=== PATIENT | male | born 1940 | race Caucasian/White ===

== ENCOUNTER 2018-10-16 14:38 | Inpatient (IN) ==
[2018-10-16] MEDS ORDERED: Naloxone 0.4 MG/ML INJ IVP PRN (17:31)
[2018-10-16] MEDS ORDERED: Ringers Solution, Lactated 1,000 ML IVC SCH (17:45)
[2018-10-16 18:04] LABS: Basophils % 0.3 %; Eosinophils # 0.1 K/mcL (0.0-0.6); Eosinophils % 0.7 %; Hematocrit 32.9 % (37.5-50.1); Immature Granulocytes % 0.3 % (0-4); Lymphocytes # 0.8 K/mcL (0.6-4.6); Lymphocytes % 6.9 %; Mean Corpuscular HGB Conc 33.4 g/dL (31.6-35.5); Mean Corpuscular Hemoglobin 31.6 pg (28.0-33.3); Mean Corpuscular Volume 94.5 fL (83.0-100.0); Mean Platelet Volume 10.3 fL (9.4-12.4); Monocytes # 0.4 K/mcL (0.0-1.3); Monocytes % 3.7 %; Neutrophils # 10.1 K/mcL (1.6-8.9); Platelet Count 256 K/mcL (140-400); Red Blood Count 3.48 M/mcL (4.19-5.50); Red Cell Distribution Width 14.6 % (11.5-14.5); Segmented Neutrophils % 88.1 %; White Blood Count 11.5 K/mcL (4.3-11.1)
[2018-10-16 18:29] LABS: Sodium, Urine 55.2 mEq/L
[2018-10-16 18:30] LABS: Alanine Aminotransferase 29 Units/L (7-52); Albumin 3.6 g/dL (3.5-5.7); Albumin/Globulin Ratio 1.4 (1.1-2.2); Alkaline Phosphatase 50 Units/L (34-104); Aspartate Amino Transferase 18 Units/L (13-39); Bilirubin,Total 0.4 mg/dL (0.3-1.0); Blood Urea Nitrogen > 130 mg/dL (8-23); Calcium 8.6 mg/dL (8.6-10.3); Carbon Dioxide 14 mEq/L (23-29); Chloride 117 mEq/L (98-107); Globulin 2.5 g/dL (2.4-3.5); Glucose 132 mg/dL (70-105); Magnesium 2.9 mg/dL (1.6-2.6); Phosphorous 6.6 mg/dL (2.7-4.5); Potassium 5.1 mEq/L (3.5-5.1); Sodium 148 mEq/L (136-145); Total Protein 6.1 g/dL (6.4-8.9); Troponin I 0.04 ng/mL (< 0.04); eGFR For African Americans 19 (> 60); eGFR For Non-African Americans 16 (> 60)
[2018-10-16 19:04] LABS: ABG Base Excess -10 mEq/L (-2 to 3); ABG HCO3 16 mEq/L (21-27); ABG Oxygen Saturation 90 % (95-98); ABG PCO2 32 mmHg (35-45); ABG PH 7.29 pH Units (7.32-7.45); ABG PO2 63 mmHg (85-104); ABG TCO2 16 mEq/L (20-26)
[2018-10-16] MEDS: Ringers Solution, Lactated 1,000 ML IVC SCH (21:43)
[2018-10-17] MEDS: *HR* Heparin 5,000 UNIT/ML VIAL SQ SCH ×4 (00:19→23:04)
[2018-10-17 03:54] LABS: Basophils # 0.1 K/mcL (0.0-0.2); Basophils % 0.4 %; Eosinophils # 0.7 K/mcL (0.0-0.6); Hematocrit 32.9 % (37.5-50.1); Hemoglobin 10.8 g/dL (12.9-16.9); Immature Granulocytes % 0.4 % (0-4); Lymphocytes # 1.4 K/mcL (0.6-4.6); Lymphocytes % 12.8 %; Mean Corpuscular HGB Conc 32.8 g/dL (31.6-35.5); Mean Corpuscular Hemoglobin 31.5 pg (28.0-33.3); Mean Corpuscular Volume 95.9 fL (83.0-100.0); Mean Platelet Volume 10.8 fL (9.4-12.4); Monocytes # 0.6 K/mcL (0.0-1.3); Monocytes % 5.6 %; Neutrophils # 8.4 K/mcL (1.6-8.9); Platelet Count 277 K/mcL (140-400); Red Blood Count 3.43 M/mcL (4.19-5.50); Red Cell Distribution Width 14.6 % (11.5-14.5); Segmented Neutrophils % 74.8 %; White Blood Count 11.2 K/mcL (4.3-11.1)
[2018-10-17] MEDS: Ringers Solution, Lactated 1,000 ML IVC SCH (04:06)
[2018-10-17 04:09] LABS: Blood Urea Nitrogen > 130 mg/dL (8-23); Carbon Dioxide 15 mEq/L (23-29); Chloride 118 mEq/L (98-107); Glucose 110 mg/dL (70-105); Magnesium 2.8 mg/dL (1.6-2.6); Phosphorous 6.1 mg/dL (2.7-4.5); Potassium 4.9 mEq/L (3.5-5.1); Sodium 150 mEq/L (136-145); eGFR For African Americans 25 (> 60); eGFR For Non-African Americans 20 (> 60)
[2018-10-17 04:10] LABS: Troponin I 0.03 ng/mL (< 0.04)
[2018-10-17 04:37] LABS: Thyroid Stimulating Hormone 1.669 mcIU/mL (0.340-5.600)
[2018-10-17 08:47] LABS: Estimated Average Glucose 131 mg/dl
[2018-10-17] MEDS: D5% in Water 1,000 ML IVC SCH ×2 (10:20→21:20)
[2018-10-17 12:04] LABS: Blood Urea Nitrogen > 130 mg/dL (8-23); Calcium 9.5 mg/dL (8.6-10.3); Carbon Dioxide 18 mEq/L (23-29); Chloride 122 mEq/L (98-107); Glucose 155 mg/dL (70-105); Potassium 4.5 mEq/L (3.5-5.1); Sodium 151 mEq/L (136-145); eGFR For African Americans 33 (> 60); eGFR For Non-African Americans 27 (> 60)
[2018-10-17] MEDS: Fluticasone Propionate Nasal 50 MCG/SPRAY BOTTLE NS SCH (14:19)
[2018-10-17] MEDS ORDERED: Acetaminophen IV 500 MG/50 ML INFUS..BTL IVPB ONE (22:27)
[2018-10-18 02:55] LABS: Basophils # 0.1 K/mcL (0.0-0.2); Basophils % 0.5 %; Eosinophils # 0.6 K/mcL (0.0-0.6); Eosinophils % 4.7 %; Hematocrit 34.1 % (37.5-50.1); Hemoglobin 11.4 g/dL (12.9-16.9); Immature Granulocytes % 0.4 % (0-4); Lymphocytes # 1.4 K/mcL (0.6-4.6); Lymphocytes % 10.7 %; Mean Corpuscular HGB Conc 33.4 g/dL (31.6-35.5); Mean Corpuscular Hemoglobin 31.1 pg (28.0-33.3); Mean Corpuscular Volume 93.2 fL (83.0-100.0); Mean Platelet Volume 11.5 fL (9.4-12.4); Monocytes # 0.8 K/mcL (0.0-1.3); Monocytes % 5.7 %; Neutrophils # 10.3 K/mcL (1.6-8.9); Platelet Count 264 K/mcL (140-400); Red Blood Count 3.66 M/mcL (4.19-5.50); Red Cell Distribution Width 14.9 % (11.5-14.5); White Blood Count 13.1 K/mcL (4.3-11.1)
[2018-10-18 03:03] LABS: Blood Urea Nitrogen > 130 mg/dL (8-23); Calcium 9.7 mg/dL (8.6-10.3); Carbon Dioxide 21 mEq/L (23-29); Chloride 118 mEq/L (98-107); Glucose 146 mg/dL (70-105); Potassium 3.9 mEq/L (3.5-5.1); Sodium 154 mEq/L (136-145); eGFR For African Americans 45 (> 60); eGFR For Non-African Americans 37 (> 60)
[2018-10-18] MEDS: D5% in Water 1,000 ML IVC SCH ×3 (06:27→18:37)
[2018-10-18] MEDS: *HR* Heparin 5,000 UNIT/ML VIAL SQ SCH ×2 (09:12→15:13)
[2018-10-18] MEDS: Fluticasone Propionate Nasal 50 MCG/SPRAY BOTTLE NS SCH (09:12)
[2018-10-18 09:58] LABS: Amphetamine Screen,Urine Negative ng/mL (Cutoff=1000); Barbiturate Screen,Urine Negative ng/mL (Cutoff=200); Benzodiazepines Screen,Urine Negative ng/mL (Cutoff=200); Cannabinoid Screen,Urine Negative ng/mL (Cutoff = 50); Cocaine Screen,Urine Negative ng/mL (Cutoff= 300); Opiate Screen,Urine Negative ng/mL (Cutoff=300); Phencyclidine Screen,Urine Negative ng/mL (Cutoff=25)
[2018-10-18 10:27] LABS: Chol/HDL Ratio 3.2 (0-4.9); Cholesterol 102 mg/dL (< 200); Ethanol < 10 mg/dL (Less than 10); HDL Cholesterol 32 mg/dL (40-59); LDL Cholesterol,Calculated 53 mg/dL (0-99); Triglycerides 85 mg/dL (< 150)
[2018-10-18 10:31] LABS: Blood Urea Nitrogen > 130 mg/dL (8-23); Calcium 9.7 mg/dL (8.6-10.3); Carbon Dioxide 21 mEq/L (23-29); Chloride 117 mEq/L (98-107); Glucose 168 mg/dL (70-105); Magnesium 2.2 mg/dL (1.6-2.6); Phosphorous 2.6 mg/dL (2.7-4.5); Potassium 3.7 mEq/L (3.5-5.1); Sodium 151 mEq/L (136-145); eGFR For African Americans 52 (> 60); eGFR For Non-African Americans 43 (> 60)
[2018-10-18 16:01] LABS: Bilirubin,Urine Negative (Negative); Blood,Urine Moderate (Negative); Clarity,Urine Clear (Clear); Color,Urine Yellow (Yellow); Glucose,Urine (UA) Normal (Normal); Ketones,Urine Negative (Negative); Leukocyte Esterase,Urine Moderate (Negative); Nitrite,Urine Negative (Negative); PH,Urine 5.5 pH Units (5.0-8.0); Protein,Urine Trace mg/dL (Neg-Trace); Specific Gravity,Urine 1.014 (1.010-1.025); Urobilinogen,Urine Normal (Normal)
[2018-10-18 16:03] LABS: Bacteria,Urine None Seen per hpf (None-Few); Hyaline Casts,Urine None Seen per lpf (None-Few); Squamous Epithelial Cell,Urine Moderate per lpf (None-Few)
[2018-10-18 16:08] LABS: Blood Urea Nitrogen > 130 mg/dL (8-23); Calcium 9.2 mg/dL (8.6-10.3); Carbon Dioxide 21 mEq/L (23-29); Chloride 119 mEq/L (98-107); Glucose 183 mg/dL (70-105); Potassium 3.8 mEq/L (3.5-5.1); Sodium 148 mEq/L (136-145); eGFR For African Americans 58 (> 60); eGFR For Non-African Americans 48 (> 60)
[2018-10-18 18:42] LABS: Blood Urea Nitrogen > 130 mg/dL (8-23); Calcium 9.5 mg/dL (8.6-10.3); Carbon Dioxide 19 mEq/L (23-29); Chloride 114 mEq/L (98-107); Glucose 191 mg/dL (70-105); Potassium 3.8 mEq/L (3.5-5.1); Sodium 148 mEq/L (136-145); eGFR For African Americans 55 (> 60); eGFR For Non-African Americans 45 (> 60)
[2018-10-18 23:49] LABS: Blood Urea Nitrogen > 130 mg/dL (8-23); Calcium 9.4 mg/dL (8.6-10.3); Carbon Dioxide 20 mEq/L (23-29); Chloride 113 mEq/L (98-107); Glucose 158 mg/dL (70-105); Potassium 3.8 mEq/L (3.5-5.1); Sodium 146 mEq/L (136-145); eGFR For African Americans 58 (> 60); eGFR For Non-African Americans 48 (> 60)
[2018-10-19] MEDS: *HR* Heparin 5,000 UNIT/ML VIAL SQ SCH ×3 (00:52→16:29)
[2018-10-19] MEDS: D5% in Water 1,000 ML IVC SCH ×2 (04:50→11:06)
[2018-10-19 05:55] LABS: Basophils % 0.3 %; Eosinophils % 9.3 %; Hematocrit 31.3 % (37.5-50.1); Hemoglobin 10.5 g/dL (12.9-16.9); Immature Granulocytes % 0.4 % (0-4); Lymphocytes # 2.3 K/mcL (0.6-4.6); Lymphocytes % 20.6 %; Mean Corpuscular HGB Conc 33.5 g/dL (31.6-35.5); Mean Corpuscular Hemoglobin 31.7 pg (28.0-33.3); Mean Corpuscular Volume 94.6 fL (83.0-100.0); Mean Platelet Volume 11.7 fL (9.4-12.4); Monocytes # 0.6 K/mcL (0.0-1.3); Monocytes % 5.6 %; Platelet Count 227 K/mcL (140-400); Red Blood Count 3.31 M/mcL (4.19-5.50); Red Cell Distribution Width 14.9 % (11.5-14.5); Segmented Neutrophils % 63.8 %
[2018-10-19 06:23] LABS: Blood Urea Nitrogen > 130 mg/dL (8-23); Calcium 9.1 mg/dL (8.6-10.3); Carbon Dioxide 24 mEq/L (23-29); Chloride 111 mEq/L (98-107); Glucose 123 mg/dL (70-105); Potassium 3.5 mEq/L (3.5-5.1); Sodium 145 mEq/L (136-145); eGFR For African Americans 60 (> 60); eGFR For Non-African Americans 49 (> 60)
[2018-10-19] MEDS ORDERED: Rasburicase 14 MG in 0.9 % Sodium Chloride 50 ML IV ONE (08:07)
[2018-10-19] MEDS: Fluticasone Propionate Nasal 50 MCG/SPRAY BOTTLE NS SCH (08:54)
[2018-10-19 11:09] LABS: Lactate Dehydrogenase 118 Units/L (140-271); Uric Acid 8.9 mg/dL (2.3-7.6)
[2018-10-19 14:32] LABS: Blood Urea Nitrogen > 130 mg/dL (8-23); Calcium 8.8 mg/dL (8.6-10.3); Carbon Dioxide 24 mEq/L (23-29); Chloride 110 mEq/L (98-107); Glucose 132 mg/dL (70-105); Potassium 3.6 mEq/L (3.5-5.1); Sodium 142 mEq/L (136-145); eGFR For African Americans > 60 (> 60); eGFR For Non-African Americans 54 (> 60)
[2018-10-19] MEDS ORDERED: Isovue-370 500 ML BOTTLE IVP ONE (17:25)
[2018-10-19 17:55] LABS: % Iron Saturation 42 % (20-55); Iron 66 mcg/dL (65-175); Lactate Dehydrogenase 134 Units/L (140-271); Transferrin 112 mg/dL (203-362)
[2018-10-19 18:11] LABS: Ferritin 321 ng/mL (20-250)
[2018-10-19 18:29] LABS: Folate > 22.3 ng/mL (3.0-16.0); Vitamin B12 1094 pg/mL (250-1100)
[2018-10-19] MEDS: Ringers Solution, Lactated 1,000 ML IVC SCH (18:41)
[2018-10-20] MEDS: *HR* Heparin 5,000 UNIT/ML VIAL SQ SCH ×4 (00:23→23:15)
[2018-10-20 06:07] LABS: Hematocrit 28.5 % (37.5-50.1); Hemoglobin 9.7 g/dL (12.9-16.9); Mean Corpuscular Hemoglobin 31.5 pg (28.0-33.3); Mean Corpuscular Volume 92.5 fL (83.0-100.0); Mean Platelet Volume 11.5 fL (9.4-12.4); Platelet Count 206 K/mcL (140-400); Red Blood Count 3.08 M/mcL (4.19-5.50); Red Cell Distribution Width 14.7 % (11.5-14.5); White Blood Count 10.2 K/mcL (4.3-11.1)
[2018-10-20 06:58] LABS: BUN/Creatinine Ratio 104 (6-26); Blood Urea Nitrogen 123 mg/dL (8-23); Calcium 8.6 mg/dL (8.6-10.3); Carbon Dioxide 22 mEq/L (23-29); Chloride 109 mEq/L (98-107); Glucose 103 mg/dL (70-105); Osmolality,Calculated 330 (280-300); Potassium 3.9 mEq/L (3.5-5.1); Sodium 140 mEq/L (136-145); eGFR For African Americans > 60 (> 60); eGFR For Non-African Americans 60 (> 60)
[2018-10-20] MEDS: Ringers Solution, Lactated 1,000 ML IVC SCH ×3 (07:31→18:52)
[2018-10-20] MEDS: Fluticasone Propionate Nasal 50 MCG/SPRAY BOTTLE NS SCH (07:32)
[2018-10-20 14:50] LABS: Total Volume 24 Hour,Urine 1.45 Liters (0.80-1.80)
[2018-10-20 14:51] LABS: Total Volume 24 Hour,Urine 1.45 Liters (0.80-1.80)
[2018-10-20 15:06] LABS: Protein/Creatinine Ratio,Urine 0.79 mg/mg (0.00-0.20); Sodium, Urine 27.7 mEq/L
[2018-10-20 17:34] LABS: VBG HCO3 21 mEq/L (21-27); VBG PCO2 31 mmHg (41-51); VBG PH 7.44 pH Units (7.32-7.42); VBG PO2 113 mmHg (25-50)
[2018-10-20 18:14] LABS: Vitamin B12 958 pg/mL (250-1100)
[2018-10-21] MEDS: Ringers Solution, Lactated 1,000 ML IVC SCH ×2 (03:20→11:20)
[2018-10-21 05:35] LABS: Kappa Qnt Free Light Chains 4.28 mg/dL (0.33-1.94); Lambda Qnt Free Light Chains 2.99 mg/dL (0.57-2.63)
[2018-10-21 05:44] LABS: Hematocrit 30.2 % (37.5-50.1); Mean Corpuscular HGB Conc 33.1 g/dL (31.6-35.5); Mean Corpuscular Hemoglobin 31.4 pg (28.0-33.3); Mean Platelet Volume 11.9 fL (9.4-12.4); Platelet Count 225 K/mcL (140-400); Red Blood Count 3.18 M/mcL (4.19-5.50); Red Cell Distribution Width 14.7 % (11.5-14.5); White Blood Count 9.9 K/mcL (4.3-11.1)
[2018-10-21 06:03] LABS: BUN/Creatinine Ratio 94 (6-26); Blood Urea Nitrogen 93 mg/dL (8-23); Calcium 8.8 mg/dL (8.6-10.3); Carbon Dioxide 25 mEq/L (23-29); Chloride 112 mEq/L (98-107); Glucose 101 mg/dL (70-105); Osmolality,Calculated 327 (280-300); Sodium 144 mEq/L (136-145); eGFR For African Americans > 60 (> 60); eGFR For Non-African Americans > 60 (> 60)
[2018-10-21 06:27] LABS: Urine Collection Volume RANDOM mL
[2018-10-21] MEDS: *HR* Heparin 5,000 UNIT/ML VIAL SQ SCH ×2 (10:28→17:04)
[2018-10-21] MEDS: Fluticasone Propionate Nasal 50 MCG/SPRAY BOTTLE NS SCH (10:29)
[2018-10-22] MEDS: *HR* Heparin 5,000 UNIT/ML VIAL SQ SCH ×4 (00:10→23:10)
[2018-10-22 03:26] LABS: Alpha 2 Globulin (PEP) 0.91 g/dL (0.48-1.05); Beta Globulin (PEP) 0.76 g/dL (0.48-1.10)
[2018-10-22] MEDS: Fluticasone Propionate Nasal 50 MCG/SPRAY BOTTLE NS SCH (07:55)
[2018-10-22 08:15] LABS: IFE Reflexed IFE Done; Immunoglobulin A 238 mg/dL (68-408); Immunoglobulin G 577 mg/dL (768-1632); Immunoglobulin M 124 mg/dL (35-263)
[2018-10-23] MEDS: *HR* Heparin 5,000 UNIT/ML VIAL SQ SCH ×2 (09:25→15:54)
[2018-10-23] MEDS: Fluticasone Propionate Nasal 50 MCG/SPRAY BOTTLE NS SCH (09:25)
[2018-10-24] MEDS: *HR* Heparin 5,000 UNIT/ML VIAL SQ SCH ×3 (00:38→16:23)
[2018-10-24] MEDS: Fluticasone Propionate Nasal 50 MCG/SPRAY BOTTLE NS SCH (10:32)
[2018-10-24 16:31] VITALS: BP 118/66
== END 2018-10-24 18:33 | DRG 682 ==
LOC: ICNU 16:07 → SUATTDRO 16:07 → 2ANU 18:42
PROVIDERS: ADMIT Internal Medicine; ATTEND Internal Medicine

== ENCOUNTER 2020-07-29 22:45 | Inpatient (IN) ==
[2020-07-29] MEDS ORDERED: Naloxone 0.4 MG/ML INJ IVP PRN (23:13)
[2020-07-29] MEDS ORDERED: Levalbuterol Neb 1.25 MG/3 ML ONE (23:14)
[2020-07-29] MEDS: Levalbuterol Neb 1.25 MG/3 ML IH SCH (23:35)
[2020-07-29] MEDS ORDERED: Potassium Chloride Elixir 20 MEQ/15 ML UDC PO ONE (23:36)
[2020-07-30] MEDS: Melatonin 3 MG TABLET PO PRN ×2 (02:10→20:48)
[2020-07-30 04:17] LABS: BUN/Creatinine Ratio 20 (6-26); Blood Urea Nitrogen 12 mg/dL (8-23); Calcium 8.7 mg/dL (8.6-10.3); Carbon Dioxide 28 mEq/L (23-29); Chloride 109 mEq/L (98-107); Glucose 102 mg/dL (70-105); Magnesium 1.7 mg/dL (1.6-2.6); Osmolality,Calculated 296 (280-300); Phosphorous 2.6 mg/dL (2.7-4.5); Potassium 3.1 mEq/L (3.5-5.1); Sodium 143 mEq/L (136-145); eGFR For African Americans > 60 (> 60); eGFR For Non-African Americans > 60 (> 60)
[2020-07-30 04:19] LABS: Basophils # 0.1 K/mcL (0.0-0.2); Basophils % 0.9 %; Eosinophils # 0.5 K/mcL (0.0-0.6); Eosinophils % 4.7 %; Hematocrit 34.8 % (37.5-50.1); Hemoglobin 11.8 g/dL (12.9-16.9); Immature Granulocytes % 0.4 % (0-4); Lymphocytes # 3.7 K/mcL (0.6-4.6); Lymphocytes % 33.8 %; Mean Corpuscular HGB Conc 33.9 g/dL (31.6-35.5); Mean Corpuscular Hemoglobin 31.6 pg (28.0-33.3); Mean Corpuscular Volume 93.3 fL (83.0-100.0); Mean Platelet Volume 9.9 fL (9.4-12.4); Monocytes # 0.7 K/mcL (0.0-1.3); Monocytes % 6.5 %; Neutrophils # 5.9 K/mcL (1.6-8.9); Platelet Count 258 K/mcL (140-400); Red Blood Count 3.73 M/mcL (4.19-5.50); Red Cell Distribution Width 14.9 % (11.5-14.5); Segmented Neutrophils % 53.7 %; White Blood Count 11.1 K/mcL (4.3-11.1)
[2020-07-30 04:28] LABS: Prothrombin Time 11.8 Seconds (9.4-12.1)
[2020-07-30 04:29] LABS: Activated Partial Thrombo Time 26.5 Seconds (26.0-36.0)
[2020-07-30] MEDS: Levalbuterol Neb 1.25 MG/3 ML IH SCH ×4 (09:14→22:47)
[2020-07-30] MEDS: Tiotropium 10 INH DOSE IH SCH (09:17)
[2020-07-30] MEDS ORDERED: *HR* Etomidate 20 MG/10 ML AMPUL IVP ONE (14:41)
[2020-07-30] MEDS ORDERED: *HR* FentaNYL (PF) 250 MCG/5 ML VIAL ONE (14:41)
[2020-07-30] MEDS ORDERED: *HR* Succinylcholine 200 MG/10 ML VIAL IVP ONE (14:41)
[2020-07-30] MEDS ORDERED: Ondansetron 4 MG/2 ML VIAL ONE (14:41)
[2020-07-30] MEDS ORDERED: Lidocaine 2% Syringe 100 MG/5 ML ONE (14:45)
[2020-07-30] MEDS ORDERED: ceFAZolin 2,000 MG in Water for inj. (sterile) 20 ML IVP ONE (15:00)
[2020-07-30] MEDS ORDERED: *HR* Rocuronium Bromide 50 MG/5 ML VIAL ONE (15:24)
[2020-07-30] MEDS: *HR* Heparin 5,000 UNIT/ML VIAL SQ SCH (18:00)
[2020-07-30] MEDS: *HR* FentaNYL (PF) 100 MCG/2 ML VIAL IVP PRN (18:23)
[2020-07-30] MEDS: *HR* OxyCODONE/APAP 5/325 TABLET PO PRN (20:38)
[2020-07-31] MEDS: *HR* FentaNYL (PF) 100 MCG/2 ML VIAL IVP PRN ×2 (01:11→20:56)
[2020-07-31] MEDS: Levalbuterol Neb 1.25 MG/3 ML IH SCH ×4 (03:18→22:22)
[2020-07-31 05:16] LABS: Basophils % 0.1 %; Hematocrit 44.3 % (37.5-50.1); Immature Granulocytes % 0.7 % (0-4); Lymphocytes # 1.3 K/mcL (0.6-4.6); Lymphocytes % 6.9 %; Mean Corpuscular HGB Conc 32.7 g/dL (31.6-35.5); Mean Corpuscular Hemoglobin 31.3 pg (28.0-33.3); Mean Corpuscular Volume 95.5 fL (83.0-100.0); Mean Platelet Volume 9.8 fL (9.4-12.4); Monocytes % 5.3 %; Platelet Count 289 K/mcL (140-400); Red Blood Count 4.64 M/mcL (4.19-5.50); Red Cell Distribution Width 15.4 % (11.5-14.5)
[2020-07-31 05:17] LABS: Hemoglobin 14.5 g/dL (12.9-16.9); White Blood Count 18.4 K/mcL (4.3-11.1)
[2020-07-31 05:55] LABS: BUN/Creatinine Ratio 22 (6-26); Blood Urea Nitrogen 17 mg/dL (8-23); Carbon Dioxide 25 mEq/L (23-29); Chloride 108 mEq/L (98-107); Glucose 155 mg/dL (70-105); Osmolality,Calculated 297 (280-300); Potassium 3.8 mEq/L (3.5-5.1); Sodium 141 mEq/L (136-145); Thyroid Stimulating Hormone 5.393 mcIU/mL (0.340-5.600); eGFR For African Americans > 60 (> 60); eGFR For Non-African Americans > 60 (> 60)
[2020-07-31] MEDS: *HR* Heparin 5,000 UNIT/ML VIAL SQ SCH ×2 (06:27→17:02)
[2020-07-31] MEDS: *HR* OxyCODONE/APAP 5/325 TABLET PO PRN ×2 (08:24→13:00)
[2020-07-31 08:51] LABS: Appearance of Pericardial Fl Clear (Clear)
[2020-07-31] MEDS ORDERED: Cholecalciferol (D-3) 1,000 UNIT (25MCG) TABLET PO SCH (09:00)
[2020-07-31] MEDS ORDERED: Aspirin 325 MG TABLET PO SCH (09:00)
[2020-07-31] MEDS: Tiotropium 10 INH DOSE IH SCH (09:25)
[2020-07-31] MEDS ORDERED: Naloxone 0.4 MG/ML INJ IVP PRN (12:08)
[2020-08-01] MEDS: *HR* FentaNYL (PF) 100 MCG/2 ML VIAL IVP PRN ×2 (03:09→08:17)
[2020-08-01] MEDS: Levalbuterol Neb 1.25 MG/3 ML IH SCH ×4 (03:28→22:50)
[2020-08-01 04:31] LABS: Basophils # 0.1 K/mcL (0.0-0.2); Basophils % 0.3 %; Eosinophils # 0.1 K/mcL (0.0-0.6); Eosinophils % 0.6 %; Immature Granulocytes % 0.5 % (0-4); Lymphocytes # 3.3 K/mcL (0.6-4.6); Lymphocytes % 18.9 %; Mean Corpuscular HGB Conc 33.3 g/dL (31.6-35.5); Mean Corpuscular Hemoglobin 31.4 pg (28.0-33.3); Mean Corpuscular Volume 94.2 fL (83.0-100.0); Mean Platelet Volume 9.6 fL (9.4-12.4); Monocytes # 1.1 K/mcL (0.0-1.3); Monocytes % 6.2 %; Neutrophils # 12.8 K/mcL (1.6-8.9); Platelet Count 274 K/mcL (140-400); Red Blood Count 4.14 M/mcL (4.19-5.50); Red Cell Distribution Width 15.3 % (11.5-14.5); Segmented Neutrophils % 73.5 %; White Blood Count 17.4 K/mcL (4.3-11.1)
[2020-08-01 04:31] LABS: VBG Ionized Calcium 1.19 mmol/L (1.15-1.35)
[2020-08-01 04:53] LABS: Alanine Aminotransferase 10 Units/L (7-52); Albumin 2.9 g/dL (3.5-5.7); Albumin/Globulin Ratio 1.1 (1.1-2.2); Alkaline Phosphatase 49 Units/L (34-104); Aspartate Amino Transferase 14 Units/L (13-39); BUN/Creatinine Ratio 26 (6-26); Bilirubin,Total 0.4 mg/dL (0.3-1.0); Blood Urea Nitrogen 20 mg/dL (8-23); Calcium 8.7 mg/dL (8.6-10.3); Carbon Dioxide 27 mEq/L (23-29); Chloride 108 mEq/L (98-107); Globulin 2.7 g/dL (2.4-3.5); Glucose 130 mg/dL (70-105); Magnesium 1.9 mg/dL (1.6-2.6); Osmolality,Calculated 294 (280-300); Potassium 3.5 mEq/L (3.5-5.1); Sodium 140 mEq/L (136-145); Total Protein 5.6 g/dL (6.4-8.9); eGFR For African Americans > 60 (> 60); eGFR For Non-African Americans > 60 (> 60)
[2020-08-01] MEDS: *HR* Heparin 5,000 UNIT/ML VIAL SQ SCH ×2 (06:07→17:38)
[2020-08-01] MEDS: *HR* OxyCODONE/APAP 5/325 TABLET PO PRN ×3 (07:19→20:31)
[2020-08-01] MEDS: Cholecalciferol (D-3) 1,000 UNIT (25MCG) TABLET PO SCH (08:17)
[2020-08-01] MEDS: Aspirin 325 MG TABLET PO SCH (08:17)
[2020-08-01] MEDS: Tiotropium 10 INH DOSE IH SCH (10:26)
[2020-08-01] MEDS: Melatonin 3 MG TABLET PO PRN (20:30)
[2020-08-02 02:03] LABS: Basophils # 0.1 K/mcL (0.0-0.2); Basophils % 0.4 %; Eosinophils # 0.3 K/mcL (0.0-0.6); Eosinophils % 1.7 %; Hematocrit 41.5 % (37.5-50.1); Hemoglobin 14.1 g/dL (12.9-16.9); Immature Granulocytes % 0.5 % (0-4); Lymphocytes % 19.2 %; Mean Corpuscular Hemoglobin 32.3 pg (28.0-33.3); Mean Platelet Volume 9.7 fL (9.4-12.4); Monocytes # 1.1 K/mcL (0.0-1.3); Neutrophils # 11.1 K/mcL (1.6-8.9); Platelet Count 280 K/mcL (140-400); Red Blood Count 4.37 M/mcL (4.19-5.50); Red Cell Distribution Width 15.3 % (11.5-14.5); Segmented Neutrophils % 71.2 %; White Blood Count 15.6 K/mcL (4.3-11.1)
[2020-08-02 02:20] LABS: BUN/Creatinine Ratio 28 (6-26); Blood Urea Nitrogen 22 mg/dL (8-23); Calcium 8.6 mg/dL (8.6-10.3); Carbon Dioxide 28 mEq/L (23-29); Chloride 106 mEq/L (98-107); Glucose 119 mg/dL (70-105); Osmolality,Calculated 294 (280-300); Potassium 3.8 mEq/L (3.5-5.1); Sodium 140 mEq/L (136-145); eGFR For African Americans > 60 (> 60); eGFR For Non-African Americans > 60 (> 60)
[2020-08-02] MEDS: Levalbuterol Neb 1.25 MG/3 ML IH SCH ×4 (03:26→22:15)
[2020-08-02] MEDS: *HR* Heparin 5,000 UNIT/ML VIAL SQ SCH ×2 (03:53→18:31)
[2020-08-02] MEDS: Cholecalciferol (D-3) 1,000 UNIT (25MCG) TABLET PO SCH (09:59)
[2020-08-02] MEDS: Aspirin 325 MG TABLET PO SCH (09:59)
[2020-08-02] MEDS: Tiotropium 10 INH DOSE IH SCH (09:59)
[2020-08-02] MEDS: Melatonin 3 MG TABLET PO PRN (21:43)
[2020-08-02] MEDS: *HR* OxyCODONE/APAP 5/325 TABLET PO PRN (21:44)
[2020-08-03 02:42] LABS: Basophils # 0.1 K/mcL (0.0-0.2); Basophils % 0.7 %; Eosinophils # 0.5 K/mcL (0.0-0.6); Eosinophils % 3.6 %; Hematocrit 38.2 % (37.5-50.1); Immature Granulocytes % 0.5 % (0-4); Lymphocytes # 3.4 K/mcL (0.6-4.6); Lymphocytes % 26.5 %; Mean Corpuscular HGB Conc 32.7 g/dL (31.6-35.5); Mean Corpuscular Hemoglobin 31.2 pg (28.0-33.3); Mean Corpuscular Volume 95.3 fL (83.0-100.0); Mean Platelet Volume 10.1 fL (9.4-12.4); Monocytes # 0.9 K/mcL (0.0-1.3); Monocytes % 7.2 %; Platelet Count 277 K/mcL (140-400); Red Blood Count 4.01 M/mcL (4.19-5.50); Red Cell Distribution Width 15.2 % (11.5-14.5); Segmented Neutrophils % 61.5 %
[2020-08-03 02:43] LABS: Hemoglobin 12.5 g/dL (12.9-16.9)
[2020-08-03 03:02] LABS: BUN/Creatinine Ratio 36 (6-26); Blood Urea Nitrogen 26 mg/dL (8-23); Calcium 8.5 mg/dL (8.6-10.3); Carbon Dioxide 27 mEq/L (23-29); Chloride 108 mEq/L (98-107); Glucose 110 mg/dL (70-105); Magnesium 1.8 mg/dL (1.6-2.6); Osmolality,Calculated 295 (280-300); Sodium 140 mEq/L (136-145); eGFR For African Americans > 60 (> 60); eGFR For Non-African Americans > 60 (> 60)
[2020-08-03] MEDS: Levalbuterol Neb 1.25 MG/3 ML IH SCH ×4 (03:34→21:55)
[2020-08-03] MEDS: *HR* Heparin 5,000 UNIT/ML VIAL SQ SCH ×2 (05:37→18:36)
[2020-08-03] MEDS: *HR* OxyCODONE/APAP 5/325 TABLET PO PRN ×2 (05:38→22:14)
[2020-08-03] MEDS: Cholecalciferol (D-3) 1,000 UNIT (25MCG) TABLET PO SCH (09:26)
[2020-08-03] MEDS: Aspirin 325 MG TABLET PO SCH (09:27)
[2020-08-03] MEDS: Tiotropium 10 INH DOSE IH SCH (10:07)
[2020-08-03] MEDS ORDERED: Furosemide 40 MG/4 ML VIAL IVP SCH (11:00)
[2020-08-03] MEDS: Furosemide 40 MG/4 ML VIAL IVP SCH (22:14)
[2020-08-03] MEDS: Melatonin 3 MG TABLET PO PRN (22:14)
[2020-08-04] MEDS: Levalbuterol Neb 1.25 MG/3 ML IH SCH ×4 (04:08→22:46)
[2020-08-04] MEDS: *HR* Heparin 5,000 UNIT/ML VIAL SQ SCH ×2 (05:40→18:33)
[2020-08-04 07:28] LABS: Basophils # 0.1 K/mcL (0.0-0.2); Basophils % 0.7 %; Eosinophils # 0.7 K/mcL (0.0-0.6); Eosinophils % 5.4 %; Hematocrit 39.6 % (37.5-50.1); Hemoglobin 13.4 g/dL (12.9-16.9); Immature Granulocytes % 0.6 % (0-4); Lymphocytes # 3.5 K/mcL (0.6-4.6); Lymphocytes % 28.4 %; Mean Corpuscular HGB Conc 33.8 g/dL (31.6-35.5); Mean Corpuscular Hemoglobin 32.1 pg (28.0-33.3); Mean Corpuscular Volume 94.7 fL (83.0-100.0); Mean Platelet Volume 9.9 fL (9.4-12.4); Monocytes # 0.9 K/mcL (0.0-1.3); Monocytes % 7.5 %; Neutrophils # 7.2 K/mcL (1.6-8.9); Platelet Count 313 K/mcL (140-400); Red Blood Count 4.18 M/mcL (4.19-5.50); Red Cell Distribution Width 15.2 % (11.5-14.5); Segmented Neutrophils % 57.4 %; White Blood Count 12.5 K/mcL (4.3-11.1)
[2020-08-04 07:49] LABS: BUN/Creatinine Ratio 34 (6-26); Blood Urea Nitrogen 25 mg/dL (8-23); Calcium 8.7 mg/dL (8.6-10.3); Carbon Dioxide 29 mEq/L (23-29); Chloride 107 mEq/L (98-107); Glucose 106 mg/dL (70-105); Magnesium 1.7 mg/dL (1.6-2.6); Osmolality,Calculated 299 (280-300); Potassium 3.8 mEq/L (3.5-5.1); Sodium 142 mEq/L (136-145); eGFR For African Americans > 60 (> 60); eGFR For Non-African Americans > 60 (> 60)
[2020-08-04] MEDS: Cholecalciferol (D-3) 1,000 UNIT (25MCG) TABLET PO SCH (09:08)
[2020-08-04] MEDS: Aspirin 325 MG TABLET PO SCH (09:08)
[2020-08-04] MEDS: Tiotropium 10 INH DOSE IH SCH (09:21)
[2020-08-04] MEDS: Furosemide 40 MG/4 ML VIAL IVP SCH ×2 (10:57→22:34)
[2020-08-05] MEDS ORDERED: DiphenhydraMINE CREAM 28.4 GM TUBE TP PRN (00:07)
[2020-08-05 03:01] LABS: BUN/Creatinine Ratio 36 (6-26); Blood Urea Nitrogen 24 mg/dL (8-23); Calcium 9.1 mg/dL (8.6-10.3); Carbon Dioxide 29 mEq/L (23-29); Chloride 104 mEq/L (98-107); Glucose 117 mg/dL (70-105); Magnesium 1.5 mg/dL (1.6-2.6); Osmolality,Calculated 297 (280-300); Potassium 4.1 mEq/L (3.5-5.1); Sodium 141 mEq/L (136-145); eGFR For African Americans > 60 (> 60); eGFR For Non-African Americans > 60 (> 60)
[2020-08-05] MEDS: Levalbuterol Neb 1.25 MG/3 ML IH SCH ×4 (04:01→22:24)
[2020-08-05] MEDS: *HR* Heparin 5,000 UNIT/ML VIAL SQ SCH ×2 (05:34→16:54)
[2020-08-05] MEDS: Aspirin 325 MG TABLET PO SCH (09:19)
[2020-08-05] MEDS: Cholecalciferol (D-3) 1,000 UNIT (25MCG) TABLET PO SCH (09:19)
[2020-08-05] MEDS: Furosemide 40 MG/4 ML VIAL IVP SCH (09:20)
[2020-08-05] MEDS: Tiotropium 10 INH DOSE IH SCH (09:51)
[2020-08-05] MEDS ORDERED: QUEtiapine Fumarate 25 MG TABLET PO SCH (21:45)
[2020-08-06 01:51] LABS: Basophils # 0.1 K/mcL (0.0-0.2); Basophils % 0.5 %; Eosinophils # 0.7 K/mcL (0.0-0.6); Eosinophils % 4.8 %; Hematocrit 40.3 % (37.5-50.1); Hemoglobin 13.9 g/dL (12.9-16.9); Immature Granulocytes % 0.9 % (0-4); Lymphocytes # 3.8 K/mcL (0.6-4.6); Lymphocytes % 25.4 %; Mean Corpuscular HGB Conc 34.5 g/dL (31.6-35.5); Mean Corpuscular Hemoglobin 32.3 pg (28.0-33.3); Mean Corpuscular Volume 93.5 fL (83.0-100.0); Mean Platelet Volume 9.9 fL (9.4-12.4); Monocytes # 1.3 K/mcL (0.0-1.3); Monocytes % 8.8 %; Neutrophils # 8.9 K/mcL (1.6-8.9); Platelet Count 332 K/mcL (140-400); Red Blood Count 4.31 M/mcL (4.19-5.50); Red Cell Distribution Width 14.6 % (11.5-14.5); Segmented Neutrophils % 59.6 %
[2020-08-06 02:02] LABS: BUN/Creatinine Ratio 28 (6-26); Blood Urea Nitrogen 25 mg/dL (8-23); Carbon Dioxide 29 mEq/L (23-29); Chloride 106 mEq/L (98-107); Glucose 117 mg/dL (70-105); Osmolality,Calculated 297 (280-300); Potassium 4.6 mEq/L (3.5-5.1); Sodium 141 mEq/L (136-145); eGFR For African Americans > 60 (> 60); eGFR For Non-African Americans > 60 (> 60)
[2020-08-06] MEDS: *HR* OxyCODONE/APAP 5/325 TABLET PO PRN (04:02)
[2020-08-06] MEDS: Levalbuterol Neb 1.25 MG/3 ML IH SCH ×3 (04:16→15:38)
[2020-08-06] MEDS: *HR* Heparin 5,000 UNIT/ML VIAL SQ SCH ×2 (05:49→16:58)
[2020-08-06] MEDS: Cholecalciferol (D-3) 1,000 UNIT (25MCG) TABLET PO SCH (07:48)
[2020-08-06] MEDS: Aspirin 325 MG TABLET PO SCH (07:49)
[2020-08-06] MEDS ORDERED: Furosemide 40 MG TABLET PO SCH (09:00)
[2020-08-06] MEDS: Tiotropium 10 INH DOSE IH SCH (09:56)
[2020-08-06 15:22] VITALS: BP 123/60
[2020-08-06 17:37] LABS: Adenovirus Not Detected (Not Detect); Bordetella Pertussis Not Detected (Not Detect); Chlamydophila pneumoniae Not Detected (Not Detect); Coronavirus 229E Not Detected (Not Detect); Coronavirus HKU1 Not Detected (Not Detect); Coronavirus NL63 Not Detected (Not Detect); Coronavirus OC43 Not Detected (Not Detect); Human Metapneumovirus Not Detected (Not Detect); Human Rhinovirus/Enterovirus Not Detected (Not Detect); Influenza A Subtype 2009 H1 Not Detected (Not Detect); Influenza B Not Detected (Not Detect); Mycoplasma pneumoniae Not Detected (Not Detect); Parainfluenza Virus 1 Not Detected (Not Detect); Parainfluenza Virus 2 Not Detected (Not Detect); Parainfluenza Virus 3 Not Detected (Not Detect); Parainfluenza Virus 4 Not Detected (Not Detect); Respiratory Syncytial Virus Not Detected (Not Detect); SARS-CoV-2 Not Detected (Not Detect)
== END 2020-08-06 18:34 | disposition other institution (70) | DRG 271 ==
LOC: ICNU → 2NENU 08-01 12:47
PROVIDERS: ADMIT Student in an Organized Health Care Education/Training Program; ATTEND Student in an Organized Health Care Education/Training Program